=== PATIENT | male | born 1955 | race Hispanic/Latino ===

== ENCOUNTER 2018-03-01 20:25 | Emergency (ER) | payer OTHER ==
[2018-03-01 21:22] LABS: #Eosinphils 0.3 thou/uL (0.0-0.7); #Lymphocytes 2.4 thou/uL (1.20-3.40); #Neutrophils 4.7 thou/uL (1.40-6.50); %Basophils 0.6 % (0.0-1.0); %Eosinophils 3.3 % (0.0-10.0); %Lymphocytes 28.2 % (21.0-51.0); %Monocytes 11.4 % (0.0-10.0); %Neutrophils 56.6 % (42.0-75.0); Hemoglobin 13.4 g/dL (14.0-18.0); Mean Corpuscular HGB CONC 32.5 g/dL (32.0-36.0); Mean Corpuscular Hemoglobin 30.9 pg (27.0-31.0); Mean Corpuscular Volume 95.1 fL (78.0-98.0); Platelet Count 275 thou/uL (130-400); RBC Distribution Width 12.7 % (11.5-14.5); Red Blood Cell (RBC) Count 4.33 mill/uL (4.70-6.10); White Blood Cell (WBC) Count 8.3 thou/uL (4.8-10.8)
[2018-03-01 21:35] LABS: ALT (SGPT) 14 U/L (8-55); AST (SGOT) 14 U/L (5-34); Albumin 3.3 g/dL (3.5-5.0); Alkaline Phosphatase 97 U/L (40-150); Anion Gap 13 mmol/L (10-20); BUN (Urea Nitrogen) 19 mg/dL (8.4-25.7); Bilirubin, Total 0.3 mg/dL (0.2-1.2); CK (CPK) 81 U/L (30-200); Calc. Creatinine Clearance 0 mL/min (70-130); Calcium 8.6 mg/dL (7.8-10.44); Carbon Dioxide 21 mmol/L (22-29); Chloride 105 mmol/L (98-107); Estimated GFR-MDRD 70; Globulin 3.1 g/dL (2.4-3.5); Glucose 219 mg/dL (70-105); Lipase 17 U/L (8-78); Potassium 4.1 mmol/L (3.5-5.1); Protein, Total 6.4 g/dL (6.0-8.3); Sodium 135 mmol/L (136-145)
--- NOTE | 2018-03-01 21:41 | RAD ---
RADIOGRAPH CHEST 1 VIEW: 03/01/18 HISTORY: 62-year-old male with chest pain. FINDINGS: There are no air space densities, pulmonary edema, pneumothorax, or cardiomegaly. The lateral costop hrenic angles are sharp. IMPRESSION: No acute cardiopulmonary findings. anabel [] POS: [facility]
[2018-03-01 21:57] LABS: CKMB 2.1 ng/mL (0-6.6)
[2018-03-02 01:10] LABS: Troponin I 0.083 ng/mL (< 0.028)
== END 2018-03-02 02:03 | disposition short-term general hospital (02) ==
LOC: ERS 20:25 → EEVIPCON 20:25 → ERS 03-02 02:03
DX: R07.9 Chest pain, unspecified (principal); E11.9 Type 2 diabetes mellitus without complications; F32.9 Major depressive disorder, single episode, unspecified; N40.0 Benign prostatic hyperplasia without lower urinary tract symptoms; Z79.4 Long term (current) use of insulin; Z79.82 Long term (current) use of aspirin; Z79.899 Other long term (current) drug therapy
CPT/HCPCS: 36415; 71045; 80053; 82550; 82553; 83690; 84484; 85025; 93005

== ENCOUNTER 2021-01-30 14:05 | Inpatient (IN) | payer OTHER ==
[2021-01-30] MEDS ORDERED: Ondansetron PF 4 MG/2 ML Vial IVP PRN (16:07)
[2021-01-30] MEDS ORDERED: Dextrose 50% Abboject 50 ML SYRINGE SLOW IVP PRN (16:07)
[2021-01-30] MEDS ORDERED: hydrALAZINE 20 MG/ML VIAL SLOW IVP PRN (16:07)
[2021-01-30] MEDS ORDERED: Morphine 2 MG/ML VIAL SLOW IVP PRN (16:07)
[2021-01-30] MEDS: Sodium Chloride 0.9% 1,000 ML IV SCH ×2 (16:07→23:10)
[2021-01-30] MEDS ORDERED: Morphine 4 MG/ML VIAL SLOW IVP PRN ×2 (16:07→16:13)
[2021-01-30] MEDS ORDERED: HumaLOG 300 UNITS/3 ML VIAL SC PRN ×2 (16:07)
[2021-01-30] MEDS ORDERED: Dextrose 5% in Water 1,000 ML IV PRN (16:07)
[2021-01-30 16:10] VITALS: BMI 34.2
[2021-01-30] MEDS ORDERED: traMADol HCl 50 MG TAB PO PRN ×2 (16:10)
[2021-01-30] MEDS ORDERED: Piperacillin/Tazobactam 3.375 GM in Sodium Chloride 0.9% 100 ML IVPB SCH ×2 (16:15→22:00)
[2021-01-30] MEDS: Acetaminophen 500 MG TAB PO SCH ×2 (17:58→21:08)
[2021-01-30 19:47] LABS: Bilirubin Negative (Negative); Blood, Urine Trace (Negative); Clarity Clear (Clear); Glucose, Urine (Dipstick) Greater than 1000 mg/dL (Negative); Ketone, Urine 20 mg/dL (Negative); Leukocyte Negative Leu/uL (Negative); Nitrite Negative (Negative); Protein, Urine (Dipstick) 20 mg/dL (Neg-Trace); RBC/HPF 0-3 HPF (0-3); Specific Gravity, Urine 1.019 (1.002-1.036); Squamous Epithelial 0-3 HPF (0-3); Urobilinogen Normal mg/dL (Less than 2); WBC/HPF 0-3 HPF (0-3)
[2021-01-30 19:54] LABS: Bacteria/HPF None Seen HPF (None Seen)
[2021-01-30 19:56] LABS: Urine Culture Reflex No No
[2021-01-30] MEDS: Famotidine/PF 20 mg/2ml Vial SLOW IVP SCH (20:22)
[2021-01-30] MEDS: Senokot S 8.6-50 MG TAB PO SCH (20:23)
[2021-01-30] MEDS: Piperacillin/Tazobactam 3.375 GM in Sodium Chloride 0.9% 100 ML IVPB SCH (21:08)
[2021-01-30] MEDS: VANCOMYCIN 1.25 GM/250 ML BAG 1.25 GM in Premix Bag 1 BAG IVPB SCH (23:10)
[2021-01-31] MEDS: Piperacillin/Tazobactam 3.375 GM in Sodium Chloride 0.9% 100 ML IVPB SCH ×3 (01:17→18:03)
[2021-01-31] MEDS: Acetaminophen 500 MG TAB PO SCH ×4 (03:23→20:43)
[2021-01-31 06:23] LABS: #Lymphocytes 0.4 thou/uL (1.20-3.40); #Monocytes 1.4 thou/uL (0.11-0.59); #Neutrophils 14.1 thou/uL (1.40-6.50); %Basophils 0.1 % (0.0-1.0); %Eosinophils 0.2 % (0.0-10.0); %Lymphocytes 2.5 % (21.0-51.0); %Monocytes 8.8 % (0.0-10.0); %Neutrophils 88.4 % (42.0-75.0); Hemoglobin 13.3 g/dL (14.0-18.0); Mean Corpuscular HGB CONC 31.1 g/dL (32.0-36.0); Mean Corpuscular Hemoglobin 29.8 pg (27.0-31.0); Mean Corpuscular Volume 95.8 fL (78.0-98.0); Mean Platelet Volume 6.7 fL (7.4-10.4); Platelet Count 187 thou/uL (130-400); Red Blood Cell (RBC) Count 4.46 mill/uL (4.70-6.10)
[2021-01-31 06:33] LABS: INR-International Normal Ratio 1.5; Prothrombin Time 17.9 sec (12.0-14.7)
[2021-01-31 06:34] LABS: PTT 37.9 sec (22.9-36.1)
[2021-01-31 06:43] LABS: Anion Gap 12 mmol/L (10-20); BUN (Urea Nitrogen) 19 mg/dL (8.4-25.7); Calc. Creatinine Clearance 117 mL/min (70-130); Calcium 7.9 mg/dL (7.8-10.44); Carbon Dioxide 19 mmol/L (23-31); Chloride 106 mmol/L (98-107); Glucose 277 mg/dL (80-115); Magnesium 1.9 mg/dL (1.6-2.6); Potassium 3.5 mmol/L (3.5-5.1); Sodium 133 mmol/L (136-145)
[2021-01-31] MEDS ORDERED: Fentanyl 100 MCG/2 ML VIAL ONE (06:55)
[2021-01-31] MEDS ORDERED: HYDROmorphone 2 MG/ML VIAL ONE (06:55)
[2021-01-31] MEDS ORDERED: Sodium Chloride 0.9% 10 ML ONE (06:55)
[2021-01-31] MEDS ORDERED: Magnesium 2 GM/50 ML 2 GM in Premix Bag 1 BAG IVPB SCH (08:00)
[2021-01-31] MEDS ORDERED: Phenylephrine 10 MG/ML VIAL ONE (08:06)
[2021-01-31] MEDS ORDERED: PROPOFOL 200 MG/20 ML VIAL ONE (08:06)
[2021-01-31] MEDS ORDERED: Dexamethasone 20 MG/5 ML VIAL ONE (08:06)
[2021-01-31] MEDS ORDERED: Ondansetron PF 4 MG/2 ML Vial ONE (08:06)
[2021-01-31] MEDS ORDERED: ePHEDrine 50 MG/ML VIAL ONE (08:06)
[2021-01-31] MEDS ORDERED: Lidocaine 1% PF 5 ML VIAL ONE (08:06)
[2021-01-31] MEDS ORDERED: Bupivacaine 0.25% 10 ML VIAL ONE (08:12)
[2021-01-31] MEDS ORDERED: Ondansetron HCl/PF 4 MG/2 ML Vial IVP PRN (08:42)
[2021-01-31] MEDS ORDERED: Meperidine HCl/PF 25 MG/ML VIAL SLOW IVP PRN (08:42)
[2021-01-31] MEDS ORDERED: Promethazine HCl 25 MG/ML VIAL IM PRN (08:42)
[2021-01-31] MEDS ORDERED: Promethazine HCl 25 MG/ML VIAL IVPB PRN (08:42)
[2021-01-31] MEDS ORDERED: HYDROmorphone 2 MG/ML VIAL SLOW IVP PRN (08:42)
[2021-01-31] MEDS ORDERED: Potassium Phosphate 30 MMOL in Sodium Chloride 0.9% 250 ML 250 ML IVPB SCH (09:00)
[2021-01-31] MEDS ORDERED: Non-Formulary Item 1 EACH (Atorvastatin Calcium [Atorvastatin Calcium] 80 MG Tablet) PO SCH (09:00)
[2021-01-31] MEDS ORDERED: Ketamine 50 MG/ML (10ML VIAL) ONE (09:30)
[2021-01-31] MEDS: VANCOMYCIN 1.25 GM/250 ML BAG 1.25 GM in Premix Bag 1 BAG IVPB SCH (11:38)
[2021-01-31] MEDS: Famotidine/PF 20 mg/2ml Vial SLOW IVP SCH ×2 (12:09→20:40)
[2021-01-31] MEDS: Carvedilol 3.125 MG TAB PO SCH ×2 (12:09→20:40)
[2021-01-31] MEDS: Insulin Regular 300 UNITS/3 ML VIAL SC PRN ×3 (12:12→20:56)
[2021-01-31] MEDS: Senokot S 8.6-50 MG TAB PO SCH ×2 (12:14→21:29)
[2021-01-31] MEDS: Polyethylene Glycol 3350 17 GM Packet PO SCH (12:14)
[2021-01-31] MEDS: Sodium Chloride 0.9% 1,000 ML IV SCH ×3 (12:15→20:39)
[2021-01-31] MEDS: Atorvastatin Calcium 40 MG TAB PO SCH (20:40)
[2021-01-31] MEDS ORDERED: NPH, Human Insulin Isophane 300 UNIT/3 ML VIAL SC SCH (21:00)
[2021-02-01 00:05] LABS: Vancomycin, Trough 13.1 ug/mL
[2021-02-01] MEDS: VANCOMYCIN 1.25 GM/250 ML BAG 1.25 GM in Premix Bag 1 BAG IVPB SCH (00:28)
[2021-02-01] MEDS: Piperacillin/Tazobactam 3.375 GM in Sodium Chloride 0.9% 100 ML IVPB SCH ×3 (02:56→17:18)
[2021-02-01] MEDS: Acetaminophen 500 MG TAB PO SCH ×4 (02:57→23:37)
[2021-02-01] MEDS: Sodium Chloride 0.9% 1,000 ML IV SCH (03:06)
[2021-02-01 04:59] LABS: Hemoglobin 13.2 g/dL (14.0-18.0); Mean Corpuscular HGB CONC 32.9 g/dL (32.0-36.0); Mean Corpuscular Hemoglobin 31.6 pg (27.0-31.0); Mean Corpuscular Volume 95.9 fL (78.0-98.0); Mean Platelet Volume 7.3 fL (7.4-10.4); Platelet Count 218 thou/uL (130-400); RBC Distribution Width 12.2 % (11.5-14.5); Red Blood Cell (RBC) Count 4.19 mill/uL (4.70-6.10); White Blood Cell (WBC) Count 18.7 thou/uL (4.8-10.8)
[2021-02-01 05:26] LABS: Anion Gap 14 mmol/L (10-20); BUN (Urea Nitrogen) 24 mg/dL (8.4-25.7); Calc. Creatinine Clearance 124 mL/min (70-130); Carbon Dioxide 15 mmol/L (23-31); Chloride 108 mmol/L (98-107); Glucose 384 mg/dL (80-115); Magnesium 2.4 mg/dL (1.6-2.6); Phosphorus 1.6 mg/dL (2.3-4.7); Potassium 4.5 mmol/L (3.5-5.1); Sodium 132 mmol/L (136-145)
[2021-02-01 05:45] LABS: Band 24 % (5-11); Lymphocytes 5 % (21-51); MDiff Complete? YES; Monocytes 5 % (0-10); Neutrophil 66 % (42-75)
[2021-02-01] MEDS: Insulin Regular 300 UNITS/3 ML VIAL SC PRN ×4 (05:52→20:13)
[2021-02-01] MEDS ORDERED: SODIUM PHOSPHATE 30 MMOL in Sodium Chloride 0.9% 250 ML 250 ML IVPB SCH (07:15)
[2021-02-01] MEDS: Carvedilol 3.125 MG TAB PO SCH ×2 (08:28→20:09)
[2021-02-01] MEDS: Famotidine/PF 20 mg/2ml Vial SLOW IVP SCH (08:28)
[2021-02-01] MEDS: Senokot S 8.6-50 MG TAB PO SCH ×2 (08:28→20:14)
[2021-02-01] MEDS: Polyethylene Glycol 3350 17 GM Packet PO SCH (08:28)
[2021-02-01] MEDS ORDERED: Acetaminophen/Codeine 30-300mg Tablet PO PRN (08:51)
[2021-02-01] MEDS ORDERED: NPH, Human Insulin Isophane 300 UNIT/3 ML VIAL SC SCH (09:00)
[2021-02-01 09:05] LABS: Hemoglobin A1c 10.5 % (4.0-6.0)
[2021-02-01] MEDS: Lantus 1000 UNITS/10 ML VIAL SC SCH ×2 (09:12→20:10)
[2021-02-01] MEDS: Vancomycin 1.5 GRAM/300 ML BAG 1.5 GM in Premix Bag 1 BAG IVPB SCH ×2 (11:59→23:38)
[2021-02-01] MEDS: Atorvastatin Calcium 40 MG TAB PO SCH (20:09)
[2021-02-02] MEDS: Piperacillin/Tazobactam 3.375 GM in Sodium Chloride 0.9% 100 ML IVPB SCH ×3 (02:08→17:05)
[2021-02-02] MEDS: Acetaminophen 500 MG TAB PO SCH ×3 (05:06→17:05)
[2021-02-02 05:40] LABS: Hemoglobin 12.8 g/dL (14.0-18.0); Mean Corpuscular HGB CONC 32.6 g/dL (32.0-36.0); Mean Corpuscular Hemoglobin 30.8 pg (27.0-31.0); Mean Corpuscular Volume 94.3 fL (78.0-98.0); Mean Platelet Volume 7.2 fL (7.4-10.4); Platelet Count 264 thou/uL (130-400); RBC Distribution Width 12.2 % (11.5-14.5); Red Blood Cell (RBC) Count 4.18 mill/uL (4.70-6.10); White Blood Cell (WBC) Count 18.1 thou/uL (4.8-10.8)
[2021-02-02 05:48] LABS: Anion Gap 11 mmol/L (10-20); BUN (Urea Nitrogen) 21 mg/dL (8.4-25.7); Calc. Creatinine Clearance 134 mL/min (70-130); Calcium 7.9 mg/dL (7.8-10.44); Carbon Dioxide 18 mmol/L (23-31); Chloride 108 mmol/L (98-107); Glucose 273 mg/dL (80-115); Sodium 133 mmol/L (136-145)
[2021-02-02 05:54] LABS: Phosphorus 1.9 mg/dL (2.3-4.7)
[2021-02-02] MEDS: Insulin Regular 300 UNITS/3 ML VIAL SC PRN ×4 (06:06→20:46)
[2021-02-02] MEDS ORDERED: Sodium Phosphate 30 MMOL in Sodium Chloride 0.9% 250 ML 250 ML IVPB SCH (08:00)
[2021-02-02] MEDS: Carvedilol 3.125 MG TAB PO SCH ×2 (09:00→20:43)
[2021-02-02] MEDS: Polyethylene Glycol 3350 17 GM Packet PO SCH (09:00)
[2021-02-02] MEDS: Guaifenesin DM 100-10/5 ML UDCUP PO PRN (09:01)
[2021-02-02] MEDS: Lantus 1000 UNITS/10 ML VIAL SC SCH (09:01)
[2021-02-02] MEDS: Senokot S 8.6-50 MG TAB PO SCH ×2 (09:01→20:44)
[2021-02-02 10:13] LABS: Band 35 % (5-11); Lymphocytes 8 % (21-51); MDiff Complete? YES; Metamyelocyte 2 % (0-0); Monocytes 3 % (0-10); Neutrophil 50 % (42-75); Platelet Morphology Comment Appears Adequate; RBC Morphology Normal; Reactive Lymphocytes 2 % (0-10)
[2021-02-02] MEDS: Vancomycin 1.5 GRAM/300 ML BAG 1.5 GM in Premix Bag 1 BAG IVPB SCH (14:15)
[2021-02-02] MEDS ORDERED: FLU VACC QS2021-22(6MOS UP)/PF 60 MCG/0.5 ML SYRINGE IM ONE (17:15)
[2021-02-02] MEDS: Atorvastatin Calcium 40 MG TAB PO SCH (20:43)
[2021-02-02] MEDS ORDERED: Lantus 1000 UNITS/10 ML VIAL SC SCH (21:00)
[2021-02-02 23:22] LABS: Vancomycin, Trough 22.4 ug/mL
[2021-02-03] MEDS: Vancomycin 1.5 GRAM/300 ML BAG 1.5 GM in Premix Bag 1 BAG IVPB SCH ×2 (00:27→12:42)
[2021-02-03] MEDS: Acetaminophen 500 MG TAB PO SCH ×4 (00:29→18:49)
[2021-02-03] MEDS: Piperacillin/Tazobactam 3.375 GM in Sodium Chloride 0.9% 100 ML IVPB SCH ×3 (02:07→18:49)
[2021-02-03 05:12] LABS: Hemoglobin 13.7 g/dL (14.0-18.0); Mean Corpuscular HGB CONC 33.6 g/dL (32.0-36.0); Mean Corpuscular Hemoglobin 31.5 pg (27.0-31.0); Mean Corpuscular Volume 93.9 fL (78.0-98.0); Mean Platelet Volume 6.5 fL (7.4-10.4); Platelet Count 362 thou/uL (130-400); RBC Distribution Width 12.3 % (11.5-14.5); Red Blood Cell (RBC) Count 4.34 mill/uL (4.70-6.10); White Blood Cell (WBC) Count 15.2 thou/uL (4.8-10.8)
[2021-02-03 05:46] LABS: Band 16 % (5-11); Eosinophils 1 % (0-10); Lymphocytes 15 % (21-51); MDiff Complete? YES; Monocytes 9 % (0-10); Neutrophil 58 % (42-75); Reactive Lymphocytes 1 % (0-10)
[2021-02-03 06:21] LABS: Anion Gap 9 mmol/L (10-20); BUN (Urea Nitrogen) 14 mg/dL (8.4-25.7); Calc. Creatinine Clearance 147 mL/min (70-130); Calcium 8.2 mg/dL (7.8-10.44); Carbon Dioxide 28 mmol/L (23-31); Chloride 105 mmol/L (98-107); Glucose 71 mg/dL (80-115); Magnesium 1.8 mg/dL (1.6-2.6); Phosphorus 3.2 mg/dL (2.3-4.7); Potassium 3.3 mmol/L (3.5-5.1); Sodium 139 mmol/L (136-145)
[2021-02-03] MEDS ORDERED: Lantus 1000 UNITS/10 ML VIAL SC SCH ×3 (06:45→21:00)
[2021-02-03] MEDS ORDERED: Magnesium 2 GM/50 ML 2 GM in Premix Bag 1 BAG IVPB SCH (07:30)
[2021-02-03] MEDS ORDERED: Potassium Phosphate 30 MMOL in Sodium Chloride 0.9% 250 ML 250 ML IVPB SCH (07:45)
[2021-02-03] MEDS: Senokot S 8.6-50 MG TAB PO SCH (08:10)
[2021-02-03] MEDS: Polyethylene Glycol 3350 17 GM Packet PO SCH (08:10)
[2021-02-03] MEDS: Carvedilol 3.125 MG TAB PO SCH (08:10)
[2021-02-03] MEDS: Guaifenesin DM 100-10/5 ML UDCUP PO PRN (08:11)
[2021-02-03] MEDS ORDERED: Lisinopril 5 MG TAB PO SCH (09:00)
[2021-02-03] MEDS ORDERED: Magnesium Sulfate 2 GM in Sodium Chloride 0.9% 100 ML IVPB SCH (09:00)
[2021-02-03] MEDS: Insulin Regular 300 UNITS/3 ML VIAL SC PRN (13:42)
[2021-02-03 16:31] VITALS: BP 120/76; TEMP 98.1
== END 2021-02-03 19:04 | DRG 853 ==
LOC: EEVIPCON 15:22 → SURG B 15:22
PROVIDERS: ADMIT Surgery; ATTEND Surgery
PROC: 0Y6Q0Z0 Detachment at Left 1st Toe, Complete, Open Approach (ICD-10-PCS; principal; 2021-01-31)
PROC: 02HV33Z Insertion of Infusion Device into Superior Vena Cava, Percutaneous Approach (ICD-10-PCS; 2021-02-03)
PROC: B5181ZA Fluoroscopy of Superior Vena Cava using Low Osmolar Contrast, Guidance (ICD-10-PCS; 2021-02-03)
PROC: B548ZZA Ultrasonography of Superior Vena Cava, Guidance (ICD-10-PCS; 2021-02-03)
DX: A41.01 Sepsis due to Methicillin susceptible Staphylococcus aureus (principal); S06.6X0A Traumatic subarachnoid hemorrhage without loss of consciousness, initial encounter; Z20.822 Contact with and (suspected) exposure to COVID-19; E87.1 Hypo-osmolality and hyponatremia; E11.52 Type 2 diabetes mellitus with diabetic peripheral angiopathy with gangrene; A40.9 Streptococcal sepsis, unspecified; W01.0XXA Fall on same level from slipping, tripping and stumbling without subsequent striking against object, initial encounter; R40.2412 Glasgow coma scale score 13-15, at arrival to emergency department; E83.39 Other disorders of phosphorus metabolism; E11.65 Type 2 diabetes mellitus with hyperglycemia; I48.91 Unspecified atrial fibrillation; N40.0 Benign prostatic hyperplasia without lower urinary tract symptoms; I25.10 Atherosclerotic heart disease of native coronary artery without angina pectoris; Y92.002 Bathroom of unspecified non-institutional (private) residence as the place of occurrence of the external cause; Z98.1 Arthrodesis status; Z95.5 Presence of coronary angioplasty implant and graft; Z79.82 Long term (current) use of aspirin; Z79.4 Long term (current) use of insulin; Z79.899 Other long term (current) drug therapy
CPT/HCPCS: 36415; 36416; 36569; 70450; 80048; 80202; 81001; 83036; 83735; 84100; 85007; 85025; 85027; 85610; 85730; 87040; 87086; 88305; 88311; 93306; C1751; J0360; J1100; J1170; J1815; J2370; J2405; J2543; J2704; J3010; J3370; J3475; J3490; J7050; S0020; S0028